=== PATIENT | male | born 1965 | race Caucasian/White ===

== ENCOUNTER 2017-10-01 12:52 | Inpatient (IN) | payer MEDICARE ==
[~2017-10-01] VITALS: Ht 180.3 cm; Wt 104.5 kg
[~2017-10-01 12:52] MED LIST: ENAL20TA PO; METF-381 P-ARTICULR
[2017-10-01 17:37] VITALS: BP 161/96; PULSE 74; RESP 16; TEMP 96.6; O2SAT 97
[2017-10-01] MEDS ORDERED: SODIUM CHLORIDE 0.9% FLUSH 10 ML FLUSH IV FLUSH PRN (18:30)
[2017-10-01] MEDS ORDERED: NALOXONE HCL 0.4 MG/ML AMP IV PUSH PRN (18:30)
[2017-10-01] MEDS ORDERED: ACETAMINOPHEN 325 MG TAB PO PRN (18:30)
[2017-10-01] MEDS ORDERED: MAGNESIUM HYDROXIDE SUSP 30 ML CUP PO PRN (18:30)
[2017-10-01] MEDS ORDERED: BISACODYL 10 MG SUPP RECTAL PRN (18:30)
[2017-10-01] MEDS ORDERED: LACTULOSE SYRUP 20 GM/30 ML CUP PO PRN (18:30)
[2017-10-01] MEDS ORDERED: SENNOSIDES 8.6 MG TAB PO PRN (18:30)
[2017-10-01] MEDS ORDERED: ONDANSETRON HCL 4 MG/2 ML VIAL IVP PRN (18:30)
--- NOTE | 2017-10-01 18:37 | HHI.HP ---
HPI Service [facility] Primary Care Physician Unknown Admission Diagnosis Diagnoses: Chief Complaint: Left flank pain Travel History International Travel<30 Days: No Contact w/Intl Traveler <30 Da: No Traveled to Known Affected Are: No History of Present Illness This is a pleasant 52 y/o Male who was seen initially at [facility] due to 2 day history of Left flank pain radiated to the left lower quadrant also had Hematuria, Patient complains of 2 day history of left flank pain radiating to left lower quadrant. He's noticed freda blood in his urine. He has history of kidney stones 3. States this feels worse. He denies any nausea or vomiting. Rates the pain 8 out of 10. He knows of nothing that makes the pain better or worse. Patient does smoke cigarettes. Seen in his bedroom in the presence of nurse, he confirm the history given, he smokes one pack daily sometimes less do not drink alcohol only very occasional, has obesity, and long history of Kidney stones, with already Urological interventions on left kidney twice and on right kidney once. Review of Systems Constitutional: DENIES: Fever, Chills, Change in appetite Endocrine: DENIES: Heat/cold intolerance Eyes: DENIES: Blurred vision, Eye pain Genitourinary: COMPLAINS OF: Hematuria Except as stated in HPI: all other systems reviewed are Neg Past Family Social History Past Medical History Tobacco dependence Hypertension DM II Kidney stones. Obesity. Past Surgical History Right rotator cuff surgery Left elbow surgery after traumatic injury Ventral hernia Left inguinal hernia repair Right leg surgery Left Kidney twice and right kidney once. Reported Medications Reported Meds & Active Scripts Active Reported Enalapril (Enalapril Maleate) 20 Mg Tab 20 Mg PO BID Metformin ER (Metformin HCl) 500 Mg Tab 1 Tab P-ARTICULR BID Allergies: Coded Allergies: No Known Allergies (Unverified , 10/01/17) Active Ordered Medications Current Medications Medications (Trade) Dose Ordered Sig/Suzanne Route Start Time Stop Time Status Last Admin (Vasotec) 20 mg BID PO 10/01/17 21:00 UNV Sodium Chloride 1,000 ml @ 100 mls/hr Q10H IV 10/01/17 18:28 UNV (NS Flush) 2 ml UNSCH PRN IV FLUSH 10/01/17 18:30 UNV (NS Flush) 2 ml BID IV FLUSH 10/01/17 21:00 UNV (Tylenol) 650 mg Q4H PRN PO 10/01/17 18:30 UNV (Zofran Inj) 4 mg Q6H PRN IVP 10/01/17 18:30 UNV (Narcan Inj) 0.4 mg UNSCH PRN IV PUSH 10/01/17 18:30 UNV (Meg-Colace) 1 tab BID PO 10/01/17 21:00 UNV (Milk Of Magnesia Liq) 30 ml Q12H PRN PO 10/01/17 18:30 UNV (Senokot) 17.2 mg Q12H PRN PO 10/01/17 18:30 UNV (Dulcolax Supp) 10 mg DAILY PRN RECTAL 10/01/17 18:30 UNV (Lactulose Liq) 30 ml DAILY PRN PO 10/01/17 18:30 UNV (NovoLOG SUPPLEMENTAL SCALE) 1 ACHS SLIDING SCALE SQ 10/01/17 21:00 UNV Family History Mother with DM and father with CAD Social History Lives with his Brother and Sister in law. smokes one pack daily and occasionally drinks alcohol. Physical Exam Vital Signs Vital Signs Date Time Temp Pulse Resp B/P (MAP) Pulse Ox O2 Delivery O2 Flow Rate FiO2 10/01/17 17:37 96.6 74 16 161/96 (117) 97 Physical Exam GENERAL: Obese patient in no acute distress. SKIN: Focused skin assessment warm/dry. HEAD: Atraumatic. Normocephalic. EYES: Pupils equal and round. No scleral icterus. No injection or drainage. ENT: No nasal bleeding or discharge. Mucous membranes pink and moist. NECK: Trachea midline. No JVD. CARDIOVASCULAR: Regular rate and rhythm. No murmur appreciated. RESPIRATORY: No accessory muscle use. Clear to auscultation. Breath sounds equal bilaterally. GASTROINTESTINAL: Abdomen soft, non-tender, nondistended. Hepatic and splenic margins not palpable. MUSCULOSKELETAL: No obvious deformities. No clubbing. No cyanosis. No edema. NEUROLOGICAL: Awake and alert. No obvious cranial nerve deficits. Motor grossly within normal limits. Normal speech. PSYCHIATRIC: Appropriate mood and affect; insight and judgment normal. Imaging CONCLUSION: 1. Moderate bilateral hydronephrosis and hydroureter. 2. Right nephrolithiasis and ureterolithiasis with large obstructing stone in the distal right ureter. 3. Left ureterolithiasis with large obstructing stone in the distal left ureter. A proximal calculus is also noted. Caprini VTE Risk Assessment Caprini VTE Risk Assessment: No/Low Risk (score <= 1) Caprini Risk Assessment Model Point Value = 1 Point Value = 2 Point Value = 3 Point Value = 5 Age 41-60 Minor surgery BMI > 25 kg/m2 Swollen legs Varicose veins or History of unexplained or recurrent spontaneous Oral contraceptives or hormone replacement Sepsis (< 1 month) Serious lung disease, including pneumonia (< 1 month) Abnormal pulmonary function Acute myocardial infarction Congestive heart failure (< 1 month) History of inflammatory bowel disease Medical patient at bed rest Age 61-74 Arthroscopic surgery Major open surgery (> 45 min) Laparoscopic surgery (> 45 min) Malignancy Confined to bed (> 72 hours) Immobilizing plaster cast Central venous access Age >= 75 History of VTE Family history of VTE Factor V Leiden Prothrombin [id number] Lupus anticoagulant Anticardiolipin antibodies Elevated serum homocysteine Heparin-induced thrombocytopenia Other congenital or acquired thrombophilia Stroke (< 1 month) Elective arthroplasty Hip, pelvis, or leg fracture Acute spinal cord injury (< 1 month) Prophylaxis Regimen Total Risk Factor Score Risk Level Prophylaxis Regimen 0-1 Low Early ambulation 2 Moderate Order ONE of the following: *Sequential Compression Device (SCD) *Heparin 5000 units SQ BID 3-4 Higher Order ONE of the following medications: *Heparin 5000 units SQ TID *Enoxaparin/Lovenox 40 mg SQ daily (WT < 150 kg, CrCl > 30 mL/min) *Enoxaparin/Lovenox 30 mg SQ daily (WT < 150 kg, CrCl > 10-29 mL/min) *Enoxaparin/Lovenox 30 mg SQ BID (WT < 150 kg, CrCl > 30 mL/min) AND/OR *Sequential Compression Device (SCD) 5 or more Highest Order ONE of the following medications: *Heparin 5000 units SQ TID (Preferred with Epidurals) *Enoxaparin/Lovenox 40 mg SQ daily (WT < 150 kg, CrCl > 30 mL/min) *Enoxaparin/Lovenox 30 mg SQ daily (WT < 150 kg, CrCl > 10-29 mL/min) *Enoxaparin/Lovenox 30 mg SQ BID (WT < 150 kg, CrCl > 30 mL/min) AND *Sequential Compression Device (SCD) Assessment and Plan Assessment and Plan 1. Urolithiasis status post CT scan of abdomen and pelvis revealed moderate bilateral hydronephrosis and hydroureter. There is a large obstructing stone in the distal right ureter the stone measures 7.4 x 11.6 mm. There is also a nonobstructing stone in the left distal ureter measuring 11 mm. Consult Urology specialist and leave NPO after Midnight 2. UTI on Ceftriaxone 3. DM II ADA diet and sliding scale, follow lipid profile, Hemoglobin A1C, TSH, 4. Hypertension continue SAV inhibitor. mild uncontrol 5. Obesity strongly recommended diet and exercise. 6. Tobacco dependence strongly recommended to stop smoking. DVT prophylaxis with SCDs for procedure tomorrow. Code Status Full code. Discussed Condition With Bryant Gregorio Guillermo MD Oct 01, 2017 6:37 pm
[2017-10-01] MEDS ORDERED: GLUCAGON 1 MG/ML VIAL OTHER PRN (19:15)
[2017-10-01] MEDS ORDERED: DEXTROSE 50% IN WATER 50 ML VIAL(D50) IV PUSH PRN (19:15)
[2017-10-01 20:00] VITALS: BP 149/70; PULSE 69; RESP 16; TEMP 98.1; O2SAT 97
[2017-10-01] MEDS: ENALAPRIL MALEATE 10 MG TAB PO SCH (20:34)
[2017-10-01] MEDS: SODIUM CHLORIDE 0.9% FLUSH 10 ML FLUSH IV FLUSH SCH (20:34)
[2017-10-01] MEDS: DOCUSATE SODIUM 50 MG/SENNA 8.6 MG TAB PO SCH (20:34)
[2017-10-01] MEDS: SODIUM CHLOR 0.9% 1000 ML INJ 1,000 ML IV SCH (20:36)
[2017-10-01] MEDS: MORPHINE SULFATE 2 MG/ML INJ IV PUSH PRN ×2 (20:41→23:34)
[2017-10-01] MEDS: INSULIN ASPART SUPPLEMENTAL SCALE SQ SCH (20:44)
[2017-10-01 21:18] LABS: HDL CHOLESTEROL 26.8 MG/DL (40.0-60.0); LDL CHOLESTEROL 98 MG/DL (0-99)
[2017-10-01 21:57] LABS: HEMOGLOBIN A1a 1.2 %; HEMOGLOBIN Ao 84.1 %; HEMOGLOBIN LA1C 2.2 %; HEMOGLOBIN P3 3.9 %
[2017-10-02] VITALS: BP 135/87; PULSE 73; RESP 16; TEMP 97.6; O2SAT 98
[2017-10-02] MEDS: MORPHINE SULFATE 2 MG/ML INJ IV PUSH PRN ×3 (02:43→09:09)
[2017-10-02 04:00] VITALS: BP 123/79; PULSE 68; RESP 17; TEMP 96.4; O2SAT 98
[2017-10-02] MEDS: SODIUM CHLOR 0.9% 1000 ML INJ 1,000 ML IV SCH (05:45)
[2017-10-02 07:30] VITALS: BP 134/81; PULSE 59; RESP 18; TEMP 95.3; O2SAT 96
[2017-10-02] MEDS: INSULIN ASPART SUPPLEMENTAL SCALE SQ SCH ×4 (08:00→20:36)
[2017-10-02] MEDS: SODIUM CHLORIDE 0.9% FLUSH 10 ML FLUSH IV FLUSH SCH ×2 (08:24→20:38)
[2017-10-02] MEDS: ENALAPRIL MALEATE 10 MG TAB PO SCH ×2 (08:24→20:35)
[2017-10-02] MEDS: DOCUSATE SODIUM 50 MG/SENNA 8.6 MG TAB PO SCH ×2 (08:24→20:35)
[2017-10-02] MEDS: cefTRIAXone INJ 1,000 MG in SODIUM CHLORIDE 0.9% INJ 100 ML IV SCH (08:25)
[2017-10-02 11:30] VITALS: BP 129/89; PULSE 62; RESP 18; TEMP 95.6; O2SAT 97
--- NOTE | 2017-10-02 13:17 | HHI.PR ---
Subjective Remarks The patient stated that he was still having pain. He said that he talked with the urologist. He has been ambulating. He no longer has blood in the urine. He says he has had multiple kidney stones in the past. Objective Vitals Vital Signs Date Time Temp Pulse Resp B/P (MAP) Pulse Ox O2 Delivery O2 Flow Rate FiO2 10/02/17 11:30 95.6 62 18 129/89 (102) 97 10/02/17 07:30 95.3 59 18 134/81 (98) 96 10/02/17 04:00 96.4 68 17 123/79 (94) 98 10/02/17 00:00 97.6 73 16 135/87 (103) 98 10/01/17 20:00 98.1 69 16 149/70 (96) 97 10/01/17 17:37 96.6 74 16 161/96 (117) 97 I/O 10/01/17 10/01/17 10/01/17 10/02/17 10/02/17 10/02/17 07:00 15:00 23:00 07:00 15:00 23:00 Intake Total 720 ml 990 ml Balance 720 ml 990 ml Intake Oral 720 ml 0 ml IV Total 990 ml # Voids 1 1 Objective Remarks GENERAL: Resting comfortably. SKIN: Focused skin assessment warm/dry. HEAD: Atraumatic. Normocephalic. EYES: Pupils equal and round. No scleral icterus. No injection or drainage. ENT: No nasal bleeding or discharge. Mucous membranes pink and moist. NECK: Trachea midline. No JVD. CARDIOVASCULAR: Regular rate and rhythm. No murmur appreciated. RESPIRATORY: No accessory muscle use. Clear to auscultation. Breath sounds equal bilaterally. GASTROINTESTINAL: Abdomen soft, non-tender, nondistended. Hepatic and splenic margins not palpable. MUSCULOSKELETAL: Left CVA tenderness appreciated. No obvious deformities. No clubbing. No cyanosis. No edema. NEUROLOGICAL: Awake and alert. No obvious cranial nerve deficits. Motor grossly within normal limits. Normal speech. PSYCHIATRIC: Appropriate mood and affect; insight and judgment normal. Medications and IVs Current Medications Medications (Trade) Dose Ordered Sig/Suzanne Route Start Time Stop Time Status Last Admin (Vasotec) 20 mg BID PO 10/01/17 21:00 10/02/17 08:24 Sodium Chloride 1,000 ml @ 100 mls/hr Q10H IV 10/01/17 18:28 10/02/17 05:45 (NS Flush) 2 ml UNSCH PRN IV FLUSH 10/01/17 18:30 (NS Flush) 2 ml BID IV FLUSH 10/01/17 21:00 10/02/17 08:24 (Tylenol) 650 mg Q4H PRN PO 10/01/17 18:30 10/02/17 05:45 (Zofran Inj) 4 mg Q6H PRN IVP 10/01/17 18:30 (Narcan Inj) 0.4 mg UNSCH PRN IV PUSH 10/01/17 18:30 (Meg-Colace) 1 tab BID PO 10/01/17 21:00 10/02/17 08:24 (Milk Of Magnesia Liq) 30 ml Q12H PRN PO 10/01/17 18:30 (Senokot) 17.2 mg Q12H PRN PO 10/01/17 18:30 (Dulcolax Supp) 10 mg DAILY PRN RECTAL 10/01/17 18:30 (Lactulose Liq) 30 ml DAILY PRN PO 10/01/17 18:30 (NovoLOG SUPPLEMENTAL SCALE) 1 ACHS SLIDING SCALE SQ 10/01/17 21:00 Ceftriaxone Sodium 1000 mg/ Sodium Chloride 100 ml @ 200 mls/hr Q24H IV 10/02/17 09:00 10/02/17 08:25 (D50w (Vial) Inj) 50 ml UNSCH PRN IV PUSH 10/01/17 19:15 (Glucagon Inj) 1 mg UNSCH PRN OTHER 10/01/17 19:15 (Morphine Inj) 4 mg Q3H PRN IV PUSH 10/02/17 14:00 UNV (Roxicodone) 5 mg Q4H PRN PO 10/02/17 13:00 (Roxicodone) 10 mg Q4H PRN PO 10/02/17 13:00 UNV A/P Assessment and Plan Nephrolithiasis The pt has a history of kidney stones. Status post CT scan of abdomen and pelvis which revealed: moderate bilateral hydronephrosis and hydroureter; There is a large obstructing stone in the distal right ureter the stone measures 7.4 x 11.6 mm; There is also a nonobstructing stone in the left distal ureter measuring 11 mm. Urology consult appreciated. - regular diet. NPO after midnight per urology. - pain control with a bowel regimen. - IVFs. UTI UA indicative of infection. - continue ceftriaxone. DM II A1c 6.2%. - insulin sliding scale. Hypertension Well controlled. - continue SAV inhibitor and pain control. Tobacco dependence The pt smokes 1 pack daily. - Strongly recommended to stop smoking. DVT prophylaxis with SCDs Discharge Planning Awaiting urology Asad Gonzales DO Oct 02, 2017 13:17
--- NOTE | 2017-10-02 13:28 | MB ---
cc: STONE MEREDITH MD DATE OF CONSULTATION: 10/02/2017 REASON FOR CONSULTATION Bilateral ureteral stones. HISTORY OF PRESENT ILLNESS The patient is a 52-year-old male with a history of kidney stones who presented to the emergency room earlier yesterday with a two-day history of left flank pain, nausea and gross hematuria. He has had similar episodes of kidney stones in the past which required surgery in [place] and in [place] by urologists. He denies fevers, chills, nausea or vomiting. His pain was 7/10 at its worst. He had a CT of the abdomen and pelvis without contrast done which showed bilateral stones in both his kidneys as well as bilateral 1 cm distal ureteral stones with hydronephrosis on the right side but no hydronephrosis on the left side. His creatinine was normal at 0.6 and he was making good urine. He was then transferred to [facility] for further evaluation. Currently he continues to urinate without problems, but he does complain of flank pain, left side more than right. REVIEW OF SYSTEMS See HPI. All systems reviewed are otherwise negative. PAST MEDICAL HISTORY 1. Hypertension. 2. Diabetes. 3. Kidney stones. 4. Obesity. PAST SURGICAL HISTORY 1. Multiple lithotripsy in the past. 2. Left inguinal hernia surgery. 3. Ventral hernia surgery. 4. Right rotator cuff surgery. MEDICATIONS 1. Metformin 500 mg p.o. daily. 2. Enalapril 20 mg p.o. daily. ALLERGIES No known drug allergies. FAMILY HISTORY Brother and dad with kidney stones. Denies genitourinary malignancies. SOCIAL HISTORY He lives with his brother and son-in-law. He smokes one pack daily. He occasionally drinks alcohol. Denies illicit drugs. PHYSICAL EXAMINATION VITAL SIGNS: Temperature 95.3, pulse 59, respiratory rate 18, blood pressure 134/81. Sat 96% on room air. GENERAL: Alert and oriented x3, in no apparent distress, pleasant and cooperative gentleman who appears his stated age. HEAD: Normocephalic, atraumatic. EYES: No scleral icterus. Extraocular muscles intact. NECK: Supple. Trachea is midline. No JVD. LUNGS: Clear to auscultation bilaterally. No wheezes, rales or rhonchi. HEART: Regular rhythm. No murmurs or gallops. ABDOMEN: Soft, nontender, nondistended. Positive bowel sounds. GENITOURINARY: No CVA tenderness bilaterally. Penis is circumcised. Testes are descended bilaterally, normal size and consistency. EXTREMITIES: Nontender. No clubbing, cyanosis or edema. PSYCH: Normal affect. NEUROLOGIC: Cranial nerves II through XII intact. Strength 5/5 in all four extremities. SKIN: No ulcers or rashes. Mucous membranes pink and moist. LABORATORY DATA White count 10.7, platelet count 232, hemoglobin 14.6, hematocrit 44.4. Sodium 142, potassium 3.9, chloride 29, bicarb 25, BUN 18, creatinine 0.70. Urine showed positive nitrites, large leukocyte esterase, trace blood. Urine culture is currently pending. IMAGING STUDIES CT of the abdomen and pelvis without contrast images reviewed. Agree with the radiologist's report. The patient has bilateral nonobstructing stones as well as bilateral distal ureteral calculi approximately 1 cm in size with mild hydronephrosis on the right. ASSESSMENT The patient is a 52-year-old male with a history of kidney stones who presented with left flank pain and was found to have bilateral ureteral stones. PLAN Will make the patient n.p.o. after midnight. Will schedule him for a cystoscopy, bilateral retrograde pyelogram, bilateral ureteroscopy, bilateral lithotripsy and bilateral stent insertion in the morning. The risks, benefits and alternatives of the procedure were explained to him including the possible need for nephrostomy tubes. Will continue the patient on Rocephin one gram every 24 hours. Medical management per the medical team. Thank you for this consult. Stone Meredith MD EMF/BT /12:39 PM /12:50 PM
[2017-10-02] MEDS ORDERED: MORPHINE SULFATE 4 MG/ML INJ IV PUSH PRN (14:00)
[2017-10-02 16:00] VITALS: BP 158/92; PULSE 70; RESP 18; TEMP 95.9; O2SAT 97
[2017-10-02 20:00] VITALS: BP 135/88; PULSE 70; RESP 18; TEMP 96; O2SAT 97
[2017-10-03] VITALS: BP 140/86; PULSE 77; RESP 16; TEMP 96.2; O2SAT 98
[2017-10-03] MEDS: SODIUM CHLOR 0.9% 1000 ML INJ 1,000 ML IV SCH ×3 (00:28→22:32)
[2017-10-03] MEDS ORDERED: CHLORHEXIDINE GLUCONATE 2 % 1 PACK (2 CLOTHS) TOPICAL PRN (02:15)
[2017-10-03] MEDS ORDERED: POVIDONE IODINE 5% (ANTISEPSIS KIT) 4 APPLICATIONS EACH NARE PRN (02:15)
[2017-10-03] MEDS ORDERED: SODIUM CHLORID 0.9% 500 ML IV PRN (02:15)
[2017-10-03] MEDS ORDERED: LACTATED RINGER'S 1000 ML IV PRN (02:15)
[2017-10-03 04:00] VITALS: BP 160/84; PULSE 74; RESP 16; TEMP 97.7; O2SAT 97
[2017-10-03 06:56] LABS: BICARBONATE 26.5 MEQ/L (21.0-32.0); MAGNESIUM 1.8 MG/DL (1.5-2.5)
[2017-10-03 07:14] LABS: HEMATOCRIT 41.9 % (39.0-51.0); MEAN CELL VOLUME 90.2 FL (80.0-100.0); MEAN CORPUSCULAR HEMOGLOBIN 30.3 PG (27.0-34.0); MEAN CORPUSCULAR HGB CONC 33.6 % (32.0-36.0); PLATELET COUNT 191 TH/MM3 (150-450); RED BLOOD COUNT 4.65 MIL/MM3 (4.50-5.90); RED CELL DISTRIBUTION WIDTH 13.4 % (11.6-17.2); REVIEW FLAG FINAL; WHITE BLOOD COUNT 9.9 TH/MM3 (4.0-11.0)
[2017-10-03 07:30] VITALS: BP 155/91; PULSE 66; RESP 18; TEMP 95.9; O2SAT 96
[2017-10-03] MEDS: SODIUM CHLORIDE 0.9% FLUSH 10 ML FLUSH IV FLUSH SCH ×2 (07:31→21:00)
[2017-10-03] MEDS: INSULIN ASPART SUPPLEMENTAL SCALE SQ SCH ×4 (07:31→22:55)
[2017-10-03] MEDS: DOCUSATE SODIUM 50 MG/SENNA 8.6 MG TAB PO SCH ×2 (07:32→22:33)
[2017-10-03] MEDS: ENALAPRIL MALEATE 10 MG TAB PO SCH ×2 (07:32→22:33)
[2017-10-03] MEDS ORDERED: FAMOTIDINE 20 MG/2 ML VIAL ONE (07:57)
[2017-10-03] MEDS: cefTRIAXone INJ 1,000 MG in SODIUM CHLORIDE 0.9% INJ 100 ML IV SCH (08:15)
[2017-10-03] MEDS ORDERED: IOHEXOL 350 MG/ML 50 ML BTL (for RAD DIAG) OTHER ONE (09:06)
[2017-10-03] MEDS ORDERED: KETOROLAC TROMETHAMINE 30 MG/ML (IVP) VIAL ONE (09:38)
[2017-10-03] MEDS: KETOROLAC TROMETHAMINE 30 MG/ML (IVP) VIAL IV PUSH SCH ×3 (09:45→22:56)
[2017-10-03] MEDS ORDERED: DO NOT ADM ANY ANTICOAGULANT DRUGS PRN (10:15)
[2017-10-03 11:20] VITALS: BP 147/92; PULSE 84; RESP 18; TEMP 95.9; O2SAT 94
--- NOTE | 2017-10-03 12:15 | EKG ---
Date Performed: 10/02/2017 Time Performed: 14:37:53 PTAGE: 52 years EKG: SINUS BRADYCARDIA POSSIBLE LEFT ATRIAL ENLARGEMENT POSSIBLE RIGHT VENTRICULAR CONDUCTION DE LAY BORDERLINE ECG NO PREVIOUS TRACING DOCTOR: Bereket Samaniego Interpretating Date/Time 10/03/2017 12:14:12
[2017-10-03] MEDS ORDERED: POLYETHYLENE GLYCOL 17 GM PKG PO ONE (14:15)
--- NOTE | 2017-10-03 14:15 | HHI.PR ---
Subjective Remarks The patient complained of significant pain around his penis following the procedure this morning. He said he has been urinating blood on and off. He is constipated. He has been tolerating a diet. He has been ambulatory. Objective Vitals Vital Signs Date Time Temp Pulse Resp B/P (MAP) Pulse Ox O2 Delivery O2 Flow Rate FiO2 10/03/17 11:20 95.9 84 18 147/92 (110) 94 10/03/17 10:15 97.5 86 12 145/78 (100) 95 Nasal Cannula 2 10/03/17 10:00 83 12 143/78 (99) 95 Nasal Cannula 2 10/03/17 09:45 94 12 165/92 (116) 95 Nasal Cannula 2 10/03/17 09:36 97.5 97 12 137/75 (95) 95 Nasal Cannula 2 10/03/17 07:30 95.9 66 18 155/91 (112) 96 10/03/17 04:00 97.7 74 16 160/84 (109) 97 10/03/17 00:00 96.2 77 16 140/86 (104) 98 10/02/17 20:00 96.0 70 18 135/88 (104) 97 10/02/17 16:00 95.9 70 18 158/92 (114) 97 I/O 10/02/17 10/02/17 10/02/17 10/03/17 10/03/17 10/03/17 07:00 15:00 23:00 07:00 15:00 23:00 Intake Total 990 ml 1620 ml 720 ml 174 ml 1000 ml Output Total 250 ml Balance 990 ml 1620 ml 720 ml 174 ml 750 ml Intake Oral 0 ml 720 ml 720 ml 0 ml IV Total 990 ml 900 ml 174 ml Other 1000 ml Output Urine Total 240 ml Estimated Blood Loss 10 ml # Voids 1 6 2 1 # Bowel Movements 0 Result Diagram: 10/03/1752510/03/17525 Objective Remarks GENERAL: Resting comfortably. SKIN: Focused skin assessment warm/dry. HEAD: Atraumatic. Normocephalic. EYES: Pupils equal and round. No scleral icterus. No injection or drainage. ENT: No nasal bleeding or discharge. Mucous membranes pink and moist. NECK: Trachea midline. No JVD. CARDIOVASCULAR: Regular rate and rhythm. No murmur appreciated. RESPIRATORY: No accessory muscle use. Clear to auscultation. Breath sounds equal bilaterally. GASTROINTESTINAL: Abdomen soft, non-tender, nondistended. Hepatic and splenic margins not palpable. MUSCULOSKELETAL: No obvious deformities. No clubbing. No cyanosis. No edema. NEUROLOGICAL: Awake and alert. No obvious cranial nerve deficits. Motor grossly within normal limits. Normal speech. PSYCHIATRIC: Appropriate mood and affect; insight and judgment normal. Procedures Cystoscopy Medications and IVs Current Medications Medications (Trade) Dose Ordered Sig/Suzanne Route Start Time Stop Time Status Last Admin (Vasotec) 20 mg BID PO 10/01/17 21:00 10/03/17 07:32 Sodium Chloride 1,000 ml @ 100 mls/hr Q10H IV 10/01/17 18:28 10/02/17 05:45 (NS Flush) 2 ml UNSCH PRN IV FLUSH 10/01/17 18:30 (NS Flush) 2 ml BID IV FLUSH 10/01/17 21:00 10/02/17 20:38 (Tylenol) 650 mg Q4H PRN PO 10/01/17 18:30 10/02/17 05:45 (Zofran Inj) 4 mg Q6H PRN IVP 10/01/17 18:30 (Narcan Inj) 0.4 mg UNSCH PRN IV PUSH 10/01/17 18:30 (Meg-Colace) 1 tab BID PO 10/01/17 21:00 10/02/17 20:35 (Milk Of Magnesia Liq) 30 ml Q12H PRN PO 10/01/17 18:30 (Senokot) 17.2 mg Q12H PRN PO 10/01/17 18:30 (Dulcolax Supp) 10 mg DAILY PRN RECTAL 10/01/17 18:30 (Lactulose Liq) 30 ml DAILY PRN PO 10/01/17 18:30 (NovoLOG SUPPLEMENTAL SCALE) 1 ACHS SLIDING SCALE SQ 10/01/17 21:00 Ceftriaxone Sodium 1000 mg/ Sodium Chloride 100 ml @ 200 mls/hr Q24H IV 10/02/17 09:00 10/03/17 08:15 (D50w (Vial) Inj) 50 ml UNSCH PRN IV PUSH 10/01/17 19:15 (Glucagon Inj) 1 mg UNSCH PRN OTHER 10/01/17 19:15 (Morphine Inj) 4 mg Q3H PRN IV PUSH 10/02/17 14:00 (Roxicodone) 5 mg Q4H PRN PO 10/02/17 13:00 (Roxicodone) 10 mg Q4H PRN PO 10/02/17 13:00 10/03/17 11:27 Lactated Ringer's 1,000 ml @ 30 mls/hr Q24H PRN IV 10/03/17 02:15 10/06/17 02:14 Sodium Chloride 500 ml @ 30 mls/hr [id number] PRN IV 10/03/17 02:15 10/06/17 02:14 (Betadine 5% Antisepsis Kit) 1 applic [employer] PRN EACH NARE 10/03/17 02:15 10/06/17 02:14 (Chlorhexidine 2% Cloth) 3 pack [employer] PRN TOPICAL 10/03/17 02:15 10/06/17 02:14 (Toradol Inj) 15 mg Q6HR IV PUSH 10/03/17 12:00 10/08/17 11:59 10/03/17 09:45 Miscellaneous Information ALL NURSING DEPARTME... UNSCH PRN .XX 10/03/17 10:15 10/04/17 10:14 A/P Assessment and Plan Nephrolithiasis The pt has a history of kidney stones. Status post CT scan of abdomen and pelvis which revealed: moderate bilateral hydronephrosis and hydroureter; There is a large obstructing stone in the distal right ureter the stone measures 7.4 x 11.6 mm; There is also a nonobstructing stone in the left distal ureter measuring 11 mm. Urology consult appreciated. - Status post cystoscopy 10/03/17 per urology. - pain control with a bowel regimen. Toradol added. - IVFs. UTI UA indicative of infection. Urine culture with no growth. - continue ceftriaxone for now. DM II A1c 6.2%. - insulin sliding scale. Hypertension Well controlled. - continue SAV inhibitor and pain control. Tobacco dependence The pt smokes 1 pack daily. - Strongly recommended to stop smoking. DVT prophylaxis with SCDs Discharge Planning Anticipate discharge home tomorrow if feeling well and cleared by urology Asad Borrero DO Oct 03, 2017 14:15
[2017-10-03 16:00] VITALS: BP 158/97; PULSE 94; RESP 18; TEMP 96.1; O2SAT 96
--- NOTE | 2017-10-03 17:38 | MP ---
cc: STONE MEREDITH MD DATE OF SURGERY: 10/03/2017 PREOPERATIVE DIAGNOSIS Bilateral distal ureteral stones. POSTOPERATIVE DIAGNOSIS Bilateral distal ureteral stones. PROCEDURES PERFORMED 1. Cystourethroscopy. 2. Right retrograde pyelogram. 3. Bilateral ureteroscopy. 4. Bilateral laser lithotripsy. 5. Bilateral stone basketing with manipulation removal. 6. Bilateral ureteral stent insertion. SURGEON Stone Meredith MD ANESTHESIA General. COMPLICATIONS None. PREOPERATIVE ANTIBIOTICS Rocephin 1 gram IV. DRAINS bilateral 6 x 28 double-J ureteral stents with string attached. SPECIMENS Right ureteral calculi for analysis. BLOOD LOSS Minimal. DISPOSITION To recovery. INDICATIONS The patient is a 52-year-old male with a longstanding history of kidney stones who was transferred from [facility] after found to have bilateral distal ureteral stones. The patient was voiding normally had a normal creatinine but was having persistent left flank pain more so than on the right. Treatment options were discussed and he elected to proceed with possible definitive treatment of his distal stones. After the risks, benefits and alternatives were explained, the patient elected to proceed. Informed consent was obtained. DETAILS OF THE PROCEDURE The patient was properly identified and brought back to the cystoscopy suite where he was laid supine on the cystoscopy table. A proper timeout was performed under the direction of Anesthesiology. The patient was intubated and induced under general anesthetic. Preoperative antibiotics in the form of Rocephin 1 gram IV was given within one hour of start of the procedure. The patient was then placed in dorsolithotomy position and prepped and draped in the normal sterile surgical fashion. A rigid cystoscope was carefully passed into the patient's bladder per urethra without any difficulty. The bladder was carefully examined. There was no evidence of bladder tumor, stones, diverticula, it was 1+ trabeculated. Both the orifices appeared in normal anatomic location. Both the orifices were stadium in configuration and widely patent. At that time, a 5-Sinhala open-end ureteral catheter was inserted just inside the right ureteral orifice. A right retrograde pyelogram was performed which showed a filling defect in the distal ureter corresponding to the CT findings. There was moderate hydronephrosis proximal to the stone. Therefore, at this point I attempted to pass a wire through the ureteral catheter over to the kidney but was meeting resistance and buckling at the stone. Therefore, I removed both the wire and the ureteral catheter and the cystoscope. I used a self-dilating semi-rigid ureteroscope and went just inside the ureteral orifice were I came across a large stone. Using a 365 micron laser fiber, I was able to break the stone up into tiny fragments. Several of the larger fragments were removed with a Zero Tip basket. Under direct visualization, I then passed a wire through the rigid ureteroscope up into the right kidney. The scope was then removed. A 6 x 28 double-J stent was then backloaded over the wire up into the right kidney with a string attached. I then anchored the string outside his urethral meatus with a hemostat to the sterile drape. I then reinserted the cystoscope into the bladder and found the left ureteral orifice. The stone was easily visualized under fluoroscopic imaging, therefore I did not find it necessary to do a left retrograde pyelogram. I then was able to easily pass a wire up in the left kidney bypassing the stone. The scope was then removed. Going alongside the wire, I passed a semi-rigid ureteral scope into the distal ureter where I found the stone. The stone was then broken up with a 365 micron laser fiber. All the fragments were then easily removed with a Zero Tip basket. These were all dumped in the bladder and later siphoned out through the scope. At this point, the ureter had moderate trauma and the distal ureter had swelling, therefore I decided to leave the stone on the left side as well but there were no residual ureteral stone fragments. I floated a 6 x 28 double-J up into the left kidney with the string left on. The bladder was then drained. Both strings and both stents were then attached to the patient's dorsal side of his penis with Mastisol and Steri-Strips. This concluded procedure. The patient was extubated and sent to recovery in stable condition to be transferred back to the floor for routine postoperative care. The plan will be to remove the stents in the morning. MD JANA Umana/PEGGY /9:33 AM /4:59 PM
[2017-10-03 20:20] VITALS: BP 168/92; PULSE 90; RESP 18; TEMP 96.9; O2SAT 96
[2017-10-04 00:36] VITALS: BP 194/99; PULSE 99; RESP 18; TEMP 97; O2SAT 95
[2017-10-04 01:30] VITALS: BP 172/98
[2017-10-04] MEDS ORDERED: cloNIDine HCL 0.1 MG TAB PO ONE (02:15)
[2017-10-04 04:38] VITALS: BP 145/83; PULSE 84; RESP 18; TEMP 97.3; O2SAT 95
[2017-10-04] MEDS: KETOROLAC TROMETHAMINE 30 MG/ML (IVP) VIAL IV PUSH SCH ×2 (06:00→12:00)
[2017-10-04] MEDS: SODIUM CHLOR 0.9% 1000 ML INJ 1,000 ML IV SCH ×2 (06:28→07:27)
[2017-10-04] MEDS: ENALAPRIL MALEATE 10 MG TAB PO SCH (07:22)
[2017-10-04] MEDS: DOCUSATE SODIUM 50 MG/SENNA 8.6 MG TAB PO SCH (07:22)
[2017-10-04] MEDS: INSULIN ASPART SUPPLEMENTAL SCALE SQ SCH (07:22)
[2017-10-04] MEDS: cefTRIAXone INJ 1,000 MG in SODIUM CHLORIDE 0.9% INJ 100 ML IV SCH (07:23)
[2017-10-04] MEDS: SODIUM CHLORIDE 0.9% FLUSH 10 ML FLUSH IV FLUSH SCH (07:30)
[2017-10-04 08:00] VITALS: BP 163/88; PULSE 95; RESP 18; TEMP 98.2; O2SAT 90
[2017-10-04 09:06] VITALS: O2SAT 92
--- NOTE | 2017-10-04 09:19 | HHI.PR ---
Subjective Patient symptoms today some dysuria with urination. Denies flank pain, fevers, chills, nausea, chest pain, shortness of breath. Objective Vital Signs Vital Signs Date Time Temp Pulse Resp B/P (MAP) Pulse Ox O2 Delivery O2 Flow Rate FiO2 10/04/17 09:06 92 Nasal Cannula 2.00 10/04/17 08:00 98.2 95 18 163/88 (113) 90 10/04/17 04:38 97.3 84 18 145/83 (103) 95 10/04/17 01:30 172/98 (122) 10/04/17 00:36 97.0 99 18 194/99 (130) 95 10/03/17 20:20 96.9 90 18 168/92 (117) 96 10/03/17 16:00 96.1 94 18 158/97 (117) 96 10/03/17 11:20 95.9 84 18 147/92 (110) 94 10/03/17 10:15 97.5 86 12 145/78 (100) 95 Nasal Cannula 2 10/03/17 10:00 83 12 143/78 (99) 95 Nasal Cannula 2 10/03/17 09:45 94 12 165/92 (116) 95 Nasal Cannula 2 10/03/17 09:36 97.5 97 12 137/75 (95) 95 Nasal Cannula 2 Intake & Output 10/04/17 10/04/17 07:00 19:00 Intake Total 840 ml Output Total 400 ml Balance 440 ml Intake Oral 840 ml Output Urine Total 400 ml # Voids 7 # Bowel Movements 0 Result Diagram: 10/03/1752510/03/17525 Objective Remarks NAD. A/O x 3 abd soft, NT. non labored respirations. Medications and IVs Current Medications Medications (Trade) Dose Ordered Sig/Suzanne Route Start Time Stop Time Status Last Admin (Vasotec) 20 mg BID PO 10/01/17 21:00 10/04/17 07:22 Sodium Chloride 1,000 ml @ 100 mls/hr Q10H IV 10/01/17 18:28 10/04/17 07:27 (NS Flush) 2 ml UNSCH PRN IV FLUSH 10/01/17 18:30 (NS Flush) 2 ml BID IV FLUSH 10/01/17 21:00 10/02/17 20:38 (Tylenol) 650 mg Q4H PRN PO 10/01/17 18:30 10/02/17 05:45 (Zofran Inj) 4 mg Q6H PRN IVP 10/01/17 18:30 (Narcan Inj) 0.4 mg UNSCH PRN IV PUSH 10/01/17 18:30 (Meg-Colace) 1 tab BID PO 10/01/17 21:00 10/04/17 07:22 (Milk Of Magnesia Liq) 30 ml Q12H PRN PO 10/01/17 18:30 10/04/17 02:52 (Senokot) 17.2 mg Q12H PRN PO 10/01/17 18:30 10/04/17 07:22 (Dulcolax Supp) 10 mg DAILY PRN RECTAL 10/01/17 18:30 (Lactulose Liq) 30 ml DAILY PRN PO 10/01/17 18:30 10/04/17 07:22 (NovoLOG SUPPLEMENTAL SCALE) 1 ACHS SLIDING SCALE SQ 10/01/17 21:00 10/03/17 22:55 Ceftriaxone Sodium 1000 mg/ Sodium Chloride 100 ml @ 200 mls/hr Q24H IV 10/02/17 09:00 10/04/17 07:23 (D50w (Vial) Inj) 50 ml UNSCH PRN IV PUSH 10/01/17 19:15 (Glucagon Inj) 1 mg UNSCH PRN OTHER 10/01/17 19:15 (Morphine Inj) 4 mg Q3H PRN IV PUSH 10/02/17 14:00 (Roxicodone) 5 mg Q4H PRN PO 10/02/17 13:00 (Roxicodone) 10 mg Q4H PRN PO 10/02/17 13:00 10/04/17 07:22 Lactated Ringer's 1,000 ml @ 30 mls/hr Q24H PRN IV 10/03/17 02:15 10/06/17 02:14 Sodium Chloride 500 ml @ 30 mls/hr [id number] PRN IV 10/03/17 02:15 10/06/17 02:14 (Betadine 5% Antisepsis Kit) 1 applic [employer] PRN EACH NARE 10/03/17 02:15 10/06/17 02:14 (Chlorhexidine 2% Cloth) 3 pack [employer] PRN TOPICAL 10/03/17 02:15 10/06/17 02:14 (Toradol Inj) 15 mg Q6HR IV PUSH 10/03/17 12:00 10/08/17 11:59 10/04/17 06:00 Miscellaneous Information ALL NURSING DEPARTME... UNSCH PRN .XX 10/03/17 10:15 10/04/17 10:14 Assessment and Plan Assessment and Plan s/p cystoscopy, bilateral ureteroscopy, laser lithotripsy, stone removal, stent insertion -Stents removed at bedside. -Ok to d/c home today. F/U as outpatient. Stone Alexander MD Oct 04, 2017 09:19
[2017-10-04] MEDS ORDERED: cloNIDine HCL 0.1 MG TAB PO PRN (09:45)
[2017-10-04] MEDS ORDERED: OXYC-392 PO (10:02)
--- NOTE | 2017-10-04 10:05 | HHI.DCPOC ---
Discharge Care Plan Diagnosis: (1) Nephrolithiasis (2) Diabetes Goals to Promote Your Health * To prevent worsening of your condition and complications * To maintain your health at the optimal level Directions to Meet Your Goals Take your medications as prescribed Follow your dietary instruction Follow activity as directed Keep your appointments as scheduled Take your immunizations and boosters as scheduled If your symptoms worsen call your PCP, if no PCP go to Urgent Care Center or Emergency Room Smoking is Dangerous to Your Health. Avoid second hand smoke Call the 24-hour hour crisis hotline for domestic abuse at Asad Borrero DO Oct 04, 2017 10:05
--- NOTE | 2017-10-04 10:12 | HHI.DS ---
Discharge Summary Admission Date Oct 02, 2017 at 10:36 Discharge Date: Oct 04, 2017 Admitting Diagnosis (1) Diabetes ICD Code: E11.9 - Type 2 diabetes mellitus without complications (2) Nephrolithiasis ICD Code: N20.0 - Calculus of kidney Diagnosis: Principal Procedures Cystoscopy, bilateral ureteroscopy, laser lithotripsy, stone removal, stent insertion, stent removal Brief History - From Admission This is a pleasant 52 y/o Male who was seen initially at [facility] due to 2 day history of Left flank pain radiated to the left lower quadrant also had Hematuria, Patient complains of 2 day history of left flank pain radiating to left lower quadrant. He's noticed freda blood in his urine. He has history of kidney stones 3. States this feels worse. He denies any nausea or vomiting. Rates the pain 8 out of 10. He knows of nothing that makes the pain better or worse. Patient does smoke cigarettes. Seen in his bedroom in the presence of nurse, he confirm the history given, he smokes one pack daily sometimes less do not drink alcohol only very occasional, has obesity, and long history of Kidney stones, with already Urological interventions on left kidney twice and on right kidney once. CBC/BMP: 10/03/17 0526 10/03/17 0526 Significant Findings Laboratory Tests Test 10/01/17 19:58 10/03/17 05:26 Hemoglobin A1c 6.2 % (4.3-6.0) Triglycerides Level 260 MG/DL (42-150) HDL Cholesterol 26.8 MG/DL (40.0-60.0) Creatinine 0.58 MG/DL (0.60-1.30) Random Glucose 116 MG/DL (74-106) Calcium Level 8.3 MG/DL (8.5-10.1) Imaging Last Impressions Chest X-Ray 10/04/17 0000 Signed Impressions: Service Date/Time: Wednesday, October 04, 2017 10:18 - CONCLUSION: No acute disease. Ko Andrew MD PE at Discharge GENERAL: Resting comfortably. SKIN: Focused skin assessment warm/dry. HEAD: Atraumatic. Normocephalic. EYES: Pupils equal and round. No scleral icterus. No injection or drainage. ENT: No nasal bleeding or discharge. Mucous membranes pink and moist. NECK: Trachea midline. No JVD. CARDIOVASCULAR: Regular rate and rhythm. No murmur appreciated. RESPIRATORY: No accessory muscle use. Clear to auscultation. Breath sounds equal bilaterally. GASTROINTESTINAL: Abdomen soft, non-tender, nondistended. Hepatic and splenic margins not palpable. MUSCULOSKELETAL: No obvious deformities. No clubbing. No cyanosis. No edema. NEUROLOGICAL: Awake and alert. No obvious cranial nerve deficits. Motor grossly within normal limits. Normal speech. PSYCHIATRIC: Appropriate mood and affect; insight and judgment normal. Pt update on day of discharge The patient was ambulating without difficulty. He says pain was controlled. He said he wanted to go home. No acute concerns at this time. Discussed with nursing. Hospital Course Nephrolithiasis The pt has a history of kidney stones. Status post CT scan of abdomen and pelvis which revealed: moderate bilateral hydronephrosis and hydroureter; There is a large obstructing stone in the distal right ureter the stone measures 7.4 x 11.6 mm; There is also a nonobstructing stone in the left distal ureter measuring 11 mm. Urology was consulted. Status post cystoscopy, bilateral ureteroscopy, laser lithotripsy, stone removal, stent insertion 10/03/17 per urology. The pt received pain control with a bowel regimen. Toradol was added. He received IVFs. The stents were removed at bedside on the day of discharge. The pt will follow up with urology as an outpt. UTI UA indicative of infection. Urine culture with no growth. Ceftriaxone was discontinued. DM II A1c 6.2%. The pt was placed on an insulin sliding scale. He will resume his home metformin upon discharge. Tobacco dependence The pt smokes 1 pack daily. We strongly recommended the pt to stop smoking. Pt Condition on Discharge: Good Discharge Disposition: Discharge Home Discharge Time: > 30 minutes Discharge Instructions DIET: Follow Instructions for: As Tolerated, No Restrictions Activities you can perform: Weight Bearing as Shweta Follow up Referrals: PCP Follow-up - 1 Week Urology - 1 Week with Stone Alexander MD Vascular Surgery New Medications: Oxycodone (Oxycodone) 5 Mg Tab 5 MG PO Q4H PRN for PAIN SCALE 1 TO 10, #20 TAB Continued Medications: Enalapril (Enalapril) 20 Mg Tab 20 MG PO BID, #30 TAB 0 Refills Metformin ER (Metformin ER) 500 Mg Tab 1 TAB P-ARTICULR BID Asad Borrero DO Oct 04, 2017 10:12
--- NOTE | 2017-10-04 11:27 | RADRPT ---
EXAM DATE/TIME: 10/04/2017 10:18 [facility] COMPARISON: No previous studies available for comparison. INDICATIONS : Cough. MEDICAL HISTORY : Renal calculi. Diabetes mellitus type 2. Hypertension. SURGICAL HISTORY : Inguinal hernia repair. Umbilical hernia repair. ENCOUNTER: Initial ACUITY: 1 day PAIN SCORE: 1/10 LOCATION: Bilateral upper chest FINDINGS: A single view of the chest demonstrates the lungs to be symmetrically aerated without evidence of mas s, infiltrate or effusion. The cardiomediastinal contours are unremarkable. Osseous structures are intact. CONCLUSION: No acute disease. Ko Andrew MD on October 04, 2017 at 11:23 Board Certified Radiologist. This report was verified electronically.
== END 2017-10-04 13:51 | disposition home or self-care (01) | DRG 669 ==
LOC: NEDDLT 17:20 → INTOOBSV 17:30 → N06A 17:30 → OBSVTOIN 10-02 10:36
PROVIDERS: ADMIT Hospitalist; ATTEND Hospitalist
PROC: 0TC68ZZ Extirpation of Matter from Right Ureter, Via Natural or Artificial Opening Endoscopic (ICD-10-PCS; 2017-10-03)
PROC: 0T788DZ Dilation of Bilateral Ureters with Intraluminal Device, Via Natural or Artificial Opening Endoscopic (ICD-10-PCS; 2017-10-03)
PROC: BT1D1ZZ Fluoroscopy of Right Kidney, Ureter and Bladder using Low Osmolar Contrast (ICD-10-PCS; 2017-10-03)
PROC: 0TC78ZZ Extirpation of Matter from Left Ureter, Via Natural or Artificial Opening Endoscopic (ICD-10-PCS; principal; 2017-10-03 08:02)
DX: N13.2 Hydronephrosis with renal and ureteral calculous obstruction (principal); I10 Essential (primary) hypertension; E66.9 Obesity, unspecified; E11.9 Type 2 diabetes mellitus without complications; K59.00 Constipation, unspecified; F17.210 Nicotine dependence, cigarettes, uncomplicated; Z68.32 Body mass index [BMI] 32.0-32.9, adult; Z79.84 Long term (current) use of oral hypoglycemic drugs; Z87.442 Personal history of urinary calculi
CPT/HCPCS: 71010; 74176; 80048; 80053; 80061; 81001; 82365; 82370; 82948; 83036; 83690; 83735; 84443; 85025; 85027; 87086; 88300; 93005; 96365; 96375; J0696; J1815; J1885; J2270; J2405; J7030; Q9967